=== PATIENT | male | born 1975 | race Two or more races ===

== ENCOUNTER → 2024-12-28 | Outpatient (CLI) | payer OTHER, SELFPAY ==
--- NOTE | 2024-12-28 17:00 | XR_ITS ---
Examination: Shoulder,right, 3 views Technique: Shoulder AP internal rotation, AP external rotation, Y view shoulder, 3 views Exam date and time :December 28, 2024 1817 hours INDICATIONS: Patient fell several years ago with injured the shoulder, persistent shoulder pain. FINDINGS: No shoulder fracture or dislocation. Moderate narrowing glenohumeral joint. No AC joint separation. IMPRESSION: Moderate narrowing glenohumeral joint.
== END | disposition home or self-care (01) ==
LOC: SDIM 16:17
PROVIDERS: PCP Physician Assistant; Referring Provider Physician Assistant; Visit Provider Physician Assistant
DX: M25.811 Other specified joint disorders, right shoulder (principal); S49.91XS Unspecified injury of right shoulder and upper arm, sequela; W19.XXXS Unspecified fall, sequela
CPT/HCPCS: 73030

== ENCOUNTER → 2025-01-31 | Outpatient (CLI) | payer OTHER, SELFPAY ==
--- NOTE | 2025-01-31 10:30 | XR_ITS ---
MRI shoulder, right, without contrast. Date and time: January 31, 2025 1030 hours INDICATIONS: Right shoulder pain 10 years Technique: Multiple axial, sagittal and coronal sections of the shoulder have been obtained. Siemens high-resolution 1.5 Reba MRI scanner is utilized. Axial fat-suppressed sections, TR 2350, TE 18 T2-weighted coronal fat-saturated images, TR 3500, TE 7100 T1-weighted coronal images, TR 500, TE 15 T2-weighted sagittal fat-saturated images, TR 3500, TE 57 T1-weighted sagittal sections, TR 504, TE 13. Findings: Supraspinatus tendon insertion is abnormal, 25 mm full-thickness tear. Infraspinatus tendon insertion is intact. Subscapularis insertion is intact. Subscapularis bursa is small. Long head of the biceps is in the bicipital groove. No definite tear of the biceps superior labral anchor is seen. Retraction of the musculotendinous junction of the rotator cuff is evident. Tendinosis pattern is moderate. Distance between the acromium and humeral head is 6.8 mm Atrophy of the supraspinatus muscle is severe. Atrophy of the infraspinatus muscle is moderate. Sagittal sections demonstrate a horizontal acromion. Acromioclavicular joint demonstrates mild osteoarthritis Osacromiale is not identified. Anterior superior posterior labral tears. Bony glenoid fossa on the sagittal sections does not demonstrate osseous defect. Occult fracture or area of avascular necrosis is not seen. Acromioclavicular joint separation is not visible. Defect in the posterolateral margin of the humeral head is not seen Impression: 25 mm full-thickness tear supraspinatous tendon insertion Anterior superior posterior labral tears
== END | disposition home or self-care (01) ==
LOC: SMRI 09:27
PROVIDERS: PCP Physician Assistant; Referring Provider Physician Assistant; Visit Provider Physician Assistant
DX: S46.011D Strain of muscle(s) and tendon(s) of the rotator cuff of right shoulder, subsequent encounter (principal); X58.XXXD Exposure to other specified factors, subsequent encounter
CPT/HCPCS: 73221

== ENCOUNTER → 2025-04-12 | Outpatient (CLI) | payer OTHER, SELFPAY | END | disposition home or self-care (01) | LOC: SLDO 15:23 | PROVIDERS: PCP Physician Assistant; Referring Provider Physician Assistant; Visit Provider Physician Assistant | DX: N39.0 Urinary tract infection, site not specified (principal) | CPT/HCPCS: 87086 ==